=== PATIENT | male | born 1975 | race Caucasian/White ===

== ENCOUNTER → 2021-08-12 07:44 | Outpatient (CLI) | payer OTHER, SELFPAY ==
[2021-08-12 20:23] LABS: SARS-CoV-2 RNA PCR Negative
[2021-08-13 23:32] LABS: Influenza A QL RT-PCR Negative (Negative); Influenza B QL RT-PCR Negative (Negative)
== END ==
PROVIDERS: PCP Internal Medicine; Visit Provider Nurse Practitioner
DX: R68.89 Other general symptoms and signs (principal); Z20.822 Contact with and (suspected) exposure to COVID-19
CPT/HCPCS: 87502; C9803; U0003; U0005

== ENCOUNTER 2021-09-06 09:05 | Outpatient (CLI) | payer OTHER, SELFPAY ==
--- NOTE | ~2021-09-06 | US_ITS ---
EXAMINATION: US abdomen limited DATE: 09/06/2021 09:38 INDICATION: Right upper quadrant pain TECHNIQUE: Multiple grayscale and Doppler ultrasound images of the abdomen were obtained. COMPARISON: None available FINDINGS: Bowel gas obscures visualization of the pancreas. The visualized portions of the pancreas a re unremarkable. The liver demonstrates increased echogenicity, heterogenous echotexture, and decreas ed through transmission. No surface nodularity. Normal hepatopetal flow in the main portal vein. The gallbladder is normal with no abnormal wall thickening, pericholecystic fluid or stones. The normal c ommon bile duct measures 4 mm. There was no sonographic Cote sign. IMPRESSION: 1. No sonographic correlate for the patient's symptoms. Reviewed, dictated and finalized at location A. ORATE LOGISTICS MANAGER
== END 2021-09-06 09:06 | disposition home or self-care (01) ==
LOC: ANHIMG 09:09
PROVIDERS: PCP Internal Medicine; Visit Provider Nurse Practitioner
DX: R74.8 Abnormal levels of other serum enzymes (principal)
CPT/HCPCS: 76705

== ENCOUNTER 2023-08-21 05:52 | Day surgery (SDC) | payer OTHER, SELFPAY ==
[2023-04-23 09:17] VITALS: BMI 25.8
[2023-06-20 09:55] VITALS: BMI 25.9
[2023-08-21 06:43] VITALS: BMI 26.6
[2023-08-21 06:44] VITALS: BP 137/96; PULSE 77; RESP 18; TEMP 36.8; O2SAT 100
--- NOTE | 2023-08-21 07:06 | P.PNAN_ITS ---
Anes - Initial Pre Proc Eval Procedure: Operation Date: 08/21/23 08:00 Proposed Procedures p Screening Colonoscopy - Hermann Liu MD Date/Time: 08/21/23 07:06 Surgeon: Hermann Liu MD Pre Op Diagnosis: Neoplasm Screening Patient Data Age: 48 Gender: M Height: 1.8 m Weight: 86.6 kg Last Vital Signs Temp 36.8 C 08/21/23 06:44 Pulse 77 08/21/23 06:44 Resp 18 08/21/23 06:44 BP 137/96 H 08/21/23 06:44 Pulse Ox 100 08/21/23 06:44 O2 Del Method Room Air 08/21/23 06:44 Allergies Allergy/AdvReac Type Severity Reaction Status Date / Time No Known Allergies Allergy Verified 07/31/23 14:22 Home Medications Medication Instructions Recorded Confirmed Type famotidine 20 mg tablet (Pepcid) 20 mg PO DAILY #90 tabs 09/03/19 08/21/23 Rx cetirizine 10 mg tablet (Zyrtec) 10 mg PO DAILY 05/18/20 08/21/23 History omega-3 fatty acids 1,000 mg 1,000 mg PO BID #90 caps 05/31/21 08/21/23 Rx capsule (Fish Oil Concentrate) diphenhydramine HCl 25 mg capsule 25 mg PO HS PRN Insomnia 04/23/23 08/21/23 History (Benadryl) atorvastatin 80 mg tablet 80 mg PO DAILY #90 tabs 07/01/23 08/21/23 Rx Patient hx anesthesia problems: none Family hx anesthesia problems: none Results Review: All pre-operative results and documents have been reviewed as part of the pre- operative evaluation. [facility] Past Medical History Medical History Abnormal stress test Gastroesophageal reflux disease without esophagitis Hyperlipidemia, unspecified Primary osteoarthritis, unspecified site Family History Family History Father Family history of malignant neoplasm Social History Social History Smoking status: Never smoker Alcohol intake: current Drinks per week: 28 Alcohol use details: 4 DRINKS PER DAY, HX OF ALCOHOL ABUSE Substance use: never Substance use type: does not use Lack of Transportation: No Lack of Food: Never True Current Housing: I Have Housing Concerned About Future Housing: No Difficulty Paying Gas/Electric Bills: No Difficulty Paying for Meds: No Currently Unemployed: No Education: Associate Degree Difficulty w/ Childcare or Family Care: No Living arrangements: with family Spiritual care concerns: No Anes - Eval Final PreProcedure Day of Procedure 08/21/23 07:06 Patient weight: overweight Heart: regular rate and rhythm Lungs: clear to auscultation Airway: Mallampati scale class II Neurological: alert and oriented Last oral intake: >/= 8 hours ASA classification: III Emergent: no Anesthetic plan: proceed Anesthesia type and monitoring: general GIVS and standard monitoring Results Review: All pre-operative results and documents have been reviewed as part of the pre- operative evaluation. Informed Consent: The patient's anesthetic plan and its attendant risks and benefits were discussed with the patient/family/POA. Questions were solicited and answers provided to the satisfaction of the patient/family/POA.
[2023-08-21] MEDS: LACTATED RINGERS 1,000 ML 150 ML IV CONT (07:14)
--- NOTE | 2023-08-21 07:22 | P.HP_ITS ---
History of Present Illness History of Present Illness Consent: Risks, benefits, and alternatives have been discussed and questions answered. Patient agrees to proceed with procedure. Chief complaint: Neoplasm Screening Narrative: Chava Pineda is a 48 year old male presents for screening colonoscopy. Patient's current weight appetite and bowel movements are normal. He denies abdominal pain. Patient has had no bleeding. Family history is noncontributory . Review of Systems Review of Systems: Review of systems noncontributory. [facility] Past Medical History Medical History Abnormal stress test Gastroesophageal reflux disease without esophagitis Hyperlipidemia, unspecified Primary osteoarthritis, unspecified site Family History Family History Father Family history of malignant neoplasm Social History Social History Smoking status: Never smoker Alcohol intake: current Drinks per week: 28 Alcohol use details: 4 DRINKS PER DAY, HX OF ALCOHOL ABUSE Substance use: never Substance use type: does not use Lack of Transportation: No Lack of Food: Never True Current Housing: I Have Housing Concerned About Future Housing: No Difficulty Paying Gas/Electric Bills: No Difficulty Paying for Meds: No Currently Unemployed: No Education: Associate Degree Difficulty w/ Childcare or Family Care: No Living arrangements: with family Spiritual care concerns: No Meds Home Medications and Allergies Home Medications Medication Instructions Recorded Confirmed Type famotidine 20 mg tablet (Pepcid) 20 mg PO DAILY #90 tabs 09/03/19 08/21/23 Rx cetirizine 10 mg tablet (Zyrtec) 10 mg PO DAILY 05/18/20 08/21/23 History omega-3 fatty acids 1,000 mg 1,000 mg PO BID #90 caps 05/31/21 08/21/23 Rx capsule (Fish Oil Concentrate) diphenhydramine HCl 25 mg capsule 25 mg PO HS PRN Insomnia 04/23/23 08/21/23 History (Benadryl) atorvastatin 80 mg tablet 80 mg PO DAILY #90 tabs 07/01/23 08/21/23 Rx Allergies Allergy/AdvReac Type Severity Reaction Status Date / Time No Known Allergies Allergy Verified 07/31/23 14:22 Vital Signs Vital Signs - 24 hr 08/21/23 06:44 Temperature 98.2 F Pulse Rate 77 Respiratory Rate 18 Blood Pressure 137/96 H Pulse Oximetry 100 Oxygen Delivery Room Air Exam Narrative: Physical exam reveals patient to be alert. Vital signs stable. HEENT exam is unremarkable. Patient is anicteric. Lungs are clear to auscultation and percussion. heart is without murmur or extra sounds. Abdomen bowel sounds are present soft nontender with no organomegaly. Digital external rectal exam is normal. Assessment and Plan Assessment and plan (1) Colon cancer screening: Code(s): Z12.11 - Encounter for screening for malignant neoplasm of colon Status: Acute Assessment and Plan: Patient presents today for screening colonoscopy. He appears to be at average risk for colon polyps. Further recommendations may be given after endoscopy.
[2023-08-21 08:10] VITALS: BP 122/87; PULSE 87; RESP 16; O2SAT 98
[2023-08-21 08:20] VITALS: BP 128/90; PULSE 81; RESP 16; O2SAT 100
[2023-08-21 08:30] VITALS: BP 131/93; PULSE 84; RESP 16; O2SAT 100
--- NOTE | 2023-08-21 11:16 | WPDANESPN ---
Anes - Prog Note Post-Op Date/Time: 08/21/23 11:16 Cardiovascular status: normal Respiratory status: normal Airway patency: baseline Mental status: baseline Post-Op hydration status: normal Vital Signs: Last Vital Signs Temp 36.8 C 08/21/23 06:44 Pulse 84 08/21/23 08:30 Resp 16 08/21/23 08:30 BP 131/93 H 08/21/23 08:30 Pulse Ox 100 08/21/23 08:30 O2 Del Method Room Air 08/21/23 08:30 Pain Score (VAS): 0 I/O: Intake & Output 08/20/23 08/21/23 08/21/23 23:59 07:59 15:59 Intake Total 700 Balance 700 Post-procedural complaints: none Patient Feedback: Patient satisfied with anesthetic care. Other Findings: Patient vital signs back to baseline. Patient denies nausea and vomiting. Patient's pain under control. Patient OK for discharge.
== END 2023-08-21 08:45 | disposition home or self-care (01) ==
PROVIDERS: Visit Provider Internal Medicine Gastroenterology
PROC: 0DJD8ZZ Inspection of Lower Intestinal Tract, Via Natural or Artificial Opening Endoscopic (ICD-10-PCS; CPT 45378; principal; 2023-08-21 08:00)
DX: Z12.11 Encounter for screening for malignant neoplasm of colon (principal); K57.30 Diverticulosis of large intestine without perforation or abscess without bleeding; K64.8 Other hemorrhoids
CPT/HCPCS: 45378

== ENCOUNTER 2025-03-03 15:40 | Emergency (ER) | payer OTHER, SELFPAY ==
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
[2025-03-03 15:47] VITALS: BP 149/85; PULSE 78; RESP 16; TEMP 36.4; O2SAT 99
== END 2025-03-03 16:03 | disposition home or self-care (01) ==
PROVIDERS: Emergency Provider Registered Nurse; PCP Family Medicine
DX: R03.0 Elevated blood-pressure reading, without diagnosis of hypertension (principal); S91.301A Unspecified open wound, right foot, initial encounter; W20.8XXA Other cause of strike by thrown, projected or falling object, initial encounter; K21.9 Gastro-esophageal reflux disease without esophagitis; E78.5 Hyperlipidemia, unspecified; M19.91 Primary osteoarthritis, unspecified site
CPT/HCPCS: 99213; G0463

== ENCOUNTER 2025-06-11 07:31 | Outpatient (CLI) | payer OTHER, SELFPAY ==
--- NOTE | ~2025-06-11 | US_ITS ---
ULTRASOUND ABDOMEN LIMITED (RIGHT UPPER QUADRANT) Clinical History: R74.8 - Abnormal levels of other serum enzymes Comparison: Abdominal ultrasound 09/06/2021 Technique: Right upper quadrant sonography Findings: Liver: Normal size. Normal echotexture. No intrahepatic biliary ductal dilatation. Normal hepatopedal flow main portal vein. Common Duct: Normal caliber. 3 mm. Gallbladder: No stones. No wall thickening. No pericholecystic fluid. Pancreas: Visualized portions unremarkable. IMPRESSION: 1. No acute findings. Reviewed, dictated and finalized at location R. RANCE REPRESENTATIVE IMPRESSION: 1. No acute findings.
--- OUTSIDE RECORDS SUMMARY | 2025-06-11 07:35 | XMS_ITS | Clinical Summary ---
Author Organization [facility] [place] [address] Address [address] [place] [address] Care Team Providers Care Control Tower Radio Operator Name Role Phone Flaco Medina MD Primary Care Provider [phone] Allergies No known active allergies Medications atorvastatin (LIPITOR) 20 mg tablet 2 tablets daily. 06/24/2018 Active multivitamin with minerals tablet Take 1 tablet by mouth daily. Active calcium carbonate-vitam in D3 500 mg(1,250mg) -400 unit chewable tablet Take 1 tablet by mouth daily. Active aspirin 81 mg enteric coated tabletIndicatio ns:Family history of ischemic heart disease Take 1 tablet (81 mg total) by mouth daily 30 tablet 11 10/15/2022 Active Active Problems Problem Noted Date Diagnosed Date Family history of ischemic heart disease 022 Other chest pain 08/25/2018 Mixed hyperlipidemia 08/25/2018 Resolved Problems Problem Noted Date Diagnosed Date Resolved Date Abnormal stress test 08/25/2018 023 Medical History Medical History Date Comments Hyperlipidemia Family History Medical History Relation Name Comments Heart attack Father's Brother Relation Name Status Comments Father (Age 39) cancer Father's Brother Social History Tobacco Use Types Packs/Day Years Used Date Smoking Tobacco: Never Smokeless Tobacco: Never Tobacco Cessation:Counseling Given: Not Answered Alcohol Use Standard Drinks/Week Comments Yes 0 (1 standard drink = 0.6 oz pur e alcohol) 4-5 beers daily Personal Safety Answer Date Recorded Getting School Help Needed Not on file 10/05 Sex and Gender Information Value Date Recorded Sex Assigned at Not on file 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 Gender Identity Not on file Sexual Orientation Not on file Last Filed Vital Signs Vital Sign Reading Time Taken Comments Blood Pressure 106/74 10/15/2022 10:06 AM CDT Pulse 74 10/15/2022 10:06 AM CDT Temperature - - Respiratory Rate 16 10/06/2021 10:02 AM CDT Oxygen Saturation 100% 10/15/2022 10:06 AM CDT Inhaled Oxygen Concentration - - Weight 88 kg (194 lb) 10/15/2022 10:06 AM CDT Height 180.3 cm (5' 11) 10/15/2022 10:06 AM CDT Body Mass Index 27.06 10/15/2022 10:06 AM CDT Plan of Treatment Health Maintenance Due Date Last Done Comments Colon Cancer Screening-Colonoscopy 1975 Depression Screening 1975 Hepatitis C Screening 1975 Hepatitis B Screening 1993 Regular Well Visit/Exam 18-64 1993 DTaP/Tdap/Td Vaccine (2 - Td or Tdap) 06/12/2020 06/12/2010 Covid-19 Vaccine (3 - 2024-2 6 season) 2025 03/29/2021, 02/26/2021 Influenza Vaccine (#1) 2025 Pneumococcal vaccine <65 Aged Out No longer eligible based on patient's age to complete this topic Insurance [facility] [employer] [facility] H[facility]/PPO Address: [facility] [address] [place] [address] [facility]/PPO Address: [place] [address] Care Teams Control Tower Radio Operator Relationship Specialty Start Date End Date Flaco Medina MD PCP - General Internal Medicine 08/11/18
== END 2025-06-11 07:32 | disposition home or self-care (01) ==
PROVIDERS: PCP Family Medicine; Visit Provider Family Medicine
DX: R74.8 Abnormal levels of other serum enzymes (principal)
CPT/HCPCS: 76705